=== PATIENT | male | born 1985 | race Caucasian/White ===

== ENCOUNTER → 2016-10-21 | Outpatient (CLI) | payer OTHER ==
--- NOTE | 2016-10-21 10:18 | RAD ---
Indication: Right lateral foot pain for one month. Time of exam 10 0 4:00 AM 3 views of the right foot were obtained. The metatarsals are intact. The phalanges are intact. The midfoot and hindfoot are unremarkable. No fractures are seen. Impression: No acute bony abnormality is detected.
== END | disposition home or self-care (01) ==
LOC: RAD 09:48
PROVIDERS: ATTEND Physician Assistant Medical
DX: M79.671 Pain in right foot (principal)
CPT/HCPCS: 73630

== ENCOUNTER → 2017-09-05 | Outpatient (CLI) | payer OTHER ==
--- NOTE | 2017-09-05 16:01 | RAD ---
3 views left foot 09/05/2017 2:00 AM Indication: LEFT FOOT PAIN Comparison: None Findings: There is no fracture or dislocation identified. Articular surfaces are uninterrupted. Soft tissues are unremarkable. Impression: No evidence of acute osseous abnormality
== END | disposition home or self-care (01) ==
LOC: PMG 15:35
PROVIDERS: ATTEND Physician Assistant Medical
DX: M79.672 Pain in left foot (principal)
CPT/HCPCS: 73630